=== PATIENT | female | born 1965 | race Caucasian/White ===

== ENCOUNTER → 2017-02-19 | Outpatient (CLI) | payer OTHER ==
[~2017-02-19] MED LIST: LIPITOR10 MG PO; NORCO 5-325 TA1 EACH PO
== END | disposition disaster alternative care site (69) ==
LOC: GBCOE 14:11
DX: Z12.31 Encounter for screening mammogram for malignant neoplasm of breast (principal); N63 Unspecified lump in breast; R92.0 Mammographic microcalcification found on diagnostic imaging of breast
CPT/HCPCS: G0202

== ENCOUNTER → 2017-03-05 | Outpatient (CLI) | payer OTHER | END | disposition disaster alternative care site (69) | LOC: GPOC 02-24 13:00 → GBCOE 09:14 → GPOC 10:00 → GBCOE 10:00 | PROC: 0HBT3ZX Excision of Right Breast, Percutaneous Approach, Diagnostic (ICD-10-PCS; principal; 2017-03-05) | DX: C50.911 Malignant neoplasm of unspecified site of right female breast (principal); R92.8 Other abnormal and inconclusive findings on diagnostic imaging of breast | CPT/HCPCS: J7050 ==

== ENCOUNTER → 2017-04-07 | Day surgery (SDC) | payer OTHER ==
[~2017-04-07] VITALS: Ht 154.9 cm; Wt 60.7 kg
--- NOTE | ~2017-04-07 | OR ---
PATIENT'S NAME: RODRICK CHAPIN [facility] AGE: 51 Y [address] ROOM: [place] [address] LOCATION: [facility] ADMIT DATE: 04/07/2017 OR/Procedure Report DISCHARGE DATE: FAMILY PHYSICIAN: Mckayla Lan MD ATTENDING PHYSICIAN: Sunil Velazquez SURGEON: Sunil Velazquez MD LENS ENGRAVER: Jocelyn Casey, [employer] Operator 3. DATE OF PROCEDURE: 04/07/2017 CORRECTED COPY -- Procedure #04-13-2017 / kld PREOPERATIVE DIAGNOSIS: Infiltrating ductal carcinoma, right breast. POSTOPERATIVE DIAGNOSIS: Infiltrating ductal carcinoma, right breast. PROCEDURES PERFORMED: 1. 5 mL of Lymphazurin blue dye right periareolar intradermal injection for lymphoscintigraphy. 2. Right axillary sentinel lymph node biopsy. 3. Wire-directed right breast lumpectomy with re-excision of posterior inferior margin. ANESTHESIA: General with 36 mL of 1:1 mixture of 0.5% Marcaine with epinephrine/1% Xylocaine. SPECIMENS: 1. Right axillary tissue with sentinel lymph node. 2. Right breast lumpectomy with re-excision to margins marked. INDICATION: The patient is a 51-year-old young lady, recently worked up by Dr. Lan for evaluation of abnormal 11 mm density on right mammogram. She underwent a stereotactic biopsy, and it came back infiltrating ductal carcinoma. We discussed surgical options, and the patient was found to be a good candidate for breast preservation and agreed to proceed with such. DESCRIPTION OF PROCEDURE: After informed consent and preop injection of radio nucleotide for lymphoscintigraphy and placement of a wire in the right breast, the patient was taken to the operating room and placed under general anesthetic. We injected 5 mL of 1:1 mixture of methylene blue and normal saline for lymphoscintigraphy. Then, we prepped and draped the right breast and axilla into a sterile field. Local anesthetic infiltrated in the inferior right axilla. We used the NeoGamma detector to identify the radioactive hot spot, and we made our incision directly over it and carried down until there was a cluster of probably 3 lymph nodes with a trace of blue lymphatic channel going to the region that was radioactivity hot. We excised it. Ex vitro counts were 2100. Residual background counts were less than 30. We sent the specimen for permanent. We injected local anesthetic and closed subcutaneous tissue PATIENT'S NAME: RODRICK CHAPIN [facility] AGE: 51 Y [address] ROOM: [place], [place] [address] LOCATION: [facility] ADMIT DATE: 04/07/2017 OR/Procedure Report DISCHARGE DATE: FAMILY PHYSICIAN: Mckayla Lan MD ATTENDING PHYSICIAN: Sunil Velazquez with 3-0 Vicryl and the skin with subcuticular 4-0 Vicryl. Next, we made our incision between the 10 and 8 o'clock position in the upper outer quadrant of the right breast, carried down to the breast parenchyma following the wire at the beginning of the tight spiral as we went ahead and did an elliptical incision all the way down past the bifurcation. We then marked the anterior medial ballesteros. We reexcised the inferior and posterior ballesteros including portion of the medial wall due to dense breast tissue. We sent the specimen to Radiology and confirmed our targeted lesion within the specimen. We cauterized for hemostasis, injected with additional local anesthetic, closed subcutaneous tissue with 3-0 Vicryl, and the skin closed with subcuticular 4-0 Vicryl. Steri-Strips and sterile dressings applied. The patient tolerated the procedure well, transferred to recovery room in stable condition. SUNIL VELAZQUEZ MD WTS/modl /[id number] CORRECTED COPY -- Procedure #04-13-2017 / kld d: 04/07/17 1324 t: 04/28/17 1609, OPERATIVE SUMMARY
== END | disposition disaster alternative care site (69) ==
LOC: GOPD 04-05
PROC: 0HBT0ZZ Excision of Right Breast, Open Approach (ICD-10-PCS; principal; 2017-04-07)
PROC: 07B50ZX Excision of Right Axillary Lymphatic, Open Approach, Diagnostic (ICD-10-PCS; 2017-04-07)
DX: C50.411 Malignant neoplasm of upper-outer quadrant of right female breast (principal); C77.3 Secondary and unspecified malignant neoplasm of axilla and upper limb lymph nodes; E78.5 Hyperlipidemia, unspecified; Z79.899 Other long term (current) drug therapy; Z17.0 Estrogen receptor positive status [ER+]; Z98.890 Other specified postprocedural states
CPT/HCPCS: A9520; J0690; J1100; J2001; J2250; J2405; J3010; J7120; Q9968